=== PATIENT | female | born 1970 | race Caucasian/White ===

== ENCOUNTER 2019-11-15 16:50 | Emergency (ER) | payer MEDICAID ==
[~2019-11-15] VITALS: Ht 157.5 cm; Wt 70.9 kg
[2019-11-15] MEDS ORDERED: IBUPROFEN 400 MG TABLET PO ONE (17:30)
[2019-11-15] MEDS ORDERED: ACETAMINOPHEN 500 MG TABLET PO ONE (17:30)
[2019-11-15 19:02] VITALS: BP 118/81
== END 2019-11-15 19:55 | disposition home or self-care (01) ==
LOC: EMS 16:50
DX: U07.1 COVID-19 (principal); I10 Essential (primary) hypertension
CPT/HCPCS: 87635

== ENCOUNTER 2022-11-21 17:38 | Emergency (ER) | payer MEDICAID ==
[~2022-11-21] VITALS: Ht 154.9 cm; Wt 66.4 kg
[2022-11-21] MEDS ORDERED: APRE30TA5 PO (17:42)
[2022-11-21] MEDS ORDERED: MELA3TAB89 PO (17:42)
[2022-11-21] MEDS ORDERED: AMOX500C2 PO (17:42)
[2022-11-21] MEDS ORDERED: LORA-1000 PO (22:13)
[2022-11-21 22:30] VITALS: BP 124/73
== END 2022-11-22 05:28 | disposition home or self-care (01) ==
LOC: EMS 17:39
DX: R00.2 Palpitations (principal); F41.9 Anxiety disorder, unspecified; I10 Essential (primary) hypertension; Z98.890 Other specified postprocedural states
CPT/HCPCS: 71045; 93005; 99284